=== PATIENT | male | born 1995 | race Caucasian/White ===

== ENCOUNTER → 2023-12-03 | Outpatient (CLI) | payer OTHER | LOC: EDSEX 11:13 → M RAD 11:13 | PROVIDERS: ATTEND Physician Assistant | DX: M79.631 Pain in right forearm (principal) ==

== ENCOUNTER 2025-09-16 09:26 | Day surgery (SDC) | payer OTHER ==
[~2025-09-16] VITALS: Ht 177.8 cm; Wt 72.6 kg
[~2025-09-16 09:26] MED LIST: ASPI325T57 PO
[2025-09-16] MEDS ORDERED: MIDAZOLAM INJ 2 MG/2 ML VIAL As Ordered ONE (10:38)
[2025-09-16 10:52] VITALS: TEMP 97.3
[2025-09-16 11:36] VITALS: BP 130/85; O2SAT 99
== END 2025-09-16 11:37 | disposition home or self-care (01) ==
LOC: M OPP 09:26
PROVIDERS: ATTEND Surgery
DX: Z12.11 Encounter for screening for malignant neoplasm of colon (principal); Z80.0 Family history of malignant neoplasm of digestive organs; Z79.82 Long term (current) use of aspirin
CPT/HCPCS: 45378; J2250